=== PATIENT | female | born 1985 | race Two or more races ===

== ENCOUNTER 2022-05-31 22:06 | Emergency (ER) | payer OTHER ==
[~2022-05-31] VITALS: Ht 177.8 cm; Wt 122.3 kg
[2022-06-01] MEDS ORDERED: ACETAMINOPHEN 325 MG TAB PO ONE (01:30)
[2022-06-01] MEDS ORDERED: ACET-1079 PO (03:27)
[2022-06-01 05:20] VITALS: BP 128/72
== END 2022-06-01 05:31 | disposition home or self-care (01) ==
LOC: ER 22:08
DX: S69.91XA Unspecified injury of right wrist, hand and finger(s), initial encounter (principal); Z79.899 Other long term (current) drug therapy; X58.XXXA Exposure to other specified factors, initial encounter; Y93.89 Activity, other specified; Y92.89 Other specified places as the place of occurrence of the external cause; Y99.8 Other external cause status
CPT/HCPCS: 73090; 73110